=== PATIENT | male | born 1980 | race African-American/Black ===

== ENCOUNTER 2021-10-10 20:26 | Emergency (ER) | payer BC ==
[~2021-10-10] VITALS: Ht 182.9 cm; Wt 86.4 kg
[2021-10-10 20:44] VITALS: TEMP 98.5
[2021-10-10 20:52] LABS: HEMATOCRIT 41.1 % (42.0-52.0); HEMOGLOBIN 13.9 g/dl (13.5-18.0); MEAN CELL VOLUME 87 fl (80.0-100.0); MEAN CORPUSCULAR HEMOGLOBIN 29 pg (27-31); MEAN CORPUSCULAR HGB CONC 34 g/dl (33.0-37.0); MEAN PLATELET VOLUME 11.8 fl (7.4-10.4); PLATELET COUNT 232 K/mm3 (130-400); RED BLOOD COUNT 4.73 M/mm3 (4.20-5.60); REDCELL DISTRIBUTION WIDTH-CV 12.2 % (11.5-14.5)
[2021-10-10 20:53] LABS: INR 1.1 (0.8-3.0)
[2021-10-10 21:05] LABS: ALBUMIN 4.1 gm/dL (3.5-5.0); BILIRUBIN,TOTAL 0.8 mg/dL (0.2-1.2); CALCIUM 8.9 mg/dL (8.4-10.2); CREATININE, serum 1.51 mg/dL (0.72-1.25); POTASSIUM 3.7 mmol/L (3.5-4.5); TOTAL PROTEIN 7.8 gm/dL (6.2-8.1)
[2021-10-10 21:42] LABS: BAND 2 % (0-10); EOSINOPHIL 1 % (0-4); LYMPHOCYTE 38 % (20.0-51.0); NEUTROPHILS 57 % (42.0-75.2); PLATELET ESTIMATE NORMAL (NORMAL)
[2021-10-10 23:09] VITALS: BP 175/78; PULSE 95
== END 2021-10-10 23:13 | disposition short-term general hospital (02) ==
LOC: COL.ER 20:26
PROVIDERS: Personal Emergency Response Attendant
DX: I61.3 Nontraumatic intracerebral hemorrhage in brain stem (principal)
CPT/HCPCS: J2405; J2704; J7050